=== PATIENT | female | born 1955 | race Caucasian/White ===

== ENCOUNTER 2017-09-04 18:42 | Emergency (ER) | payer SELFPAY ==
[2017-09-04] MEDS ORDERED: LORazepam 2 MG/ML VIAL ONE (19:46)
[2017-09-04] MEDS ORDERED: LORazepam 2 MG/ML VIAL IM ONE (19:48)
--- NOTE | 2017-09-04 19:52 | ED Physician Documentation ---
Altered Mental Status - HISTORIAN Historian: patient - HPI Stated Complaint: adverse reaction Chief Complaint: Altered Mental Status Additional Information: panic attack here from [facility] for w/drawl opiates Onset: hours, continues in ED Duration: gradual onset Character of Altered Mental Status: agitated, other (very anxious). denies: seizure activity Context: heavy alcohol intake Cognition is Usually: alert, oriented x3 Associated Symptoms: involuntary movements. denies: other (quite anxious. [facility] tapering dos of xanax the last dose wasapparently today-she definitely appears on w/drawl) - ROS EYES/ENT: none CVS/RESP: none GI/: none MS/SKIN/LYMPH: none NEURO/PSYCH: anxiety, depression - PAST HX Past History: other (multiple rehab confinements also on etoh) Surgeries/Procedures: other (ltg hip) Allergies/Adverse Reactions: Allergies Allergy/AdvReac Type Severity Reaction Status Date / Time No Known Allergies Allergy Verified 09/04/17 18:59 Home Medications: Ambulatory Orders Medication Instructions Recorded Acetaminophen [Tylenol Extra 500 mg PO Q4 PRN 09/04/17 Strength] Cyclobenzaprine HCl [Flexeril] 5 mg PO TID 09/04/17 Gabapentin [Neurontin] 100 mg PO TID 09/04/17 Ibuprofen [Advil] 400 mg PO Q4 PRN 09/04/17 Levothyroxine Sodium [Synthroid] 100 mcg PO 0700 09/04/17 Loratadine [Claritin] 10 mg PO DAILY 09/04/17 Melatonin 5 mg PO QDAY 09/04/17 Naltrexone HCl [Revia] 1 tab PO DAILY 09/04/17 Sertraline HCl [Zoloft] 100 mg PO DAILY 09/04/17 Trazodone HCl 50 mg PO HS 09/04/17 - SOCIAL HX Smoking History: less than 1 pack/day Alcohol Use: heavy Drug Use: none - VITAL SIGNS Vital Signs: Vital Signs Temp Pulse Resp BP Pulse Ox 89 20 134/67 99 09/04/17 18:43 09/04/17 18:43 09/04/17 18:43 09/04/17 18:43 - REVIEWED ASSESSMENTS Nursing Assessment Reviewed: Yes Vitals Reviewed: Yes ED Results Lab/Radiology - Orders Orders: ED Orders Category Date Time Status LORazepam [Ativan] Med 09/04/17 19:46 Discontinued 2 mg .ROUTE .STK-MED ONE LORazepam [Ativan] Med 09/04/17 19:48 Once 2 mg IM NOW ONE Altered Mental Status Physical - Physical Exam General Appearance: moderate distress, anxious alert, oriented x3 Peripheral Exam: motor nml, sensation nml, reflexes nml, abnml movements HEENT: EOM's intact Neck: normal inspection Respiratory: no resp distress CVS: reg rate & rhythm, heart sounds normal Skin: warm/dry, normal color. No: cyanosis, diaphoresis, jaundice Extremities: non-tender, normal range of motion [facility] Discharge Clincal Impression: anxiety reaction-meds w-drawl, abuse xanax opiates etoh Referrals: aBsim Jin MD [Primary Care Provider] - 2 Days Comments: reccord are she is being tnsf to another psyche unit at [facility]--SHE IS BACK TO [facility] DATE TIME ENTRY IS ERRONEOUS AND MISLEADING. THIS LADIES PROBLEM EXTENDS FOR MANY \YEARS AND HAS MULTIPLE RECURRENT NEURO PSYCHE ADMISSIONS Condition: Fair Decision to Admit: NO Decision Time: 20:05
[2017-09-04 20:41] VITALS: BP 125/90
== END 2017-09-04 20:29 ==
LOC: ED 18:42
DX: F19.180 Other psychoactive substance abuse with psychoactive substance-induced anxiety disorder (principal); F10.10 Alcohol abuse, uncomplicated
CPT/HCPCS: 96372; 99283; J2060